=== PATIENT | female | born 1995 ===

== ENCOUNTER 2024-02-12 09:07 | Outpatient (CLI) | payer OTHER | END 2024-02-12 09:10 | disposition home or self-care (01) | LOC: PRENATAL 09:07 | PROVIDERS: ATTEND Obstetrics & Gynecology Maternal & Fetal Medicine | DX: O44.00 Complete placenta previa NOS or without hemorrhage, unspecified trimester (principal); O28.1 Abnormal biochemical finding on antenatal screening of mother; O34.10 Maternal care for benign tumor of corpus uteri, unspecified trimester; Z3A.18 18 weeks gestation of pregnancy ==

== ENCOUNTER 2024-05-20 08:49 | Outpatient (CLI) | payer OTHER | END 2024-05-20 08:50 | disposition home or self-care (01) | LOC: PRENATAL 08:49 | PROVIDERS: ATTEND Obstetrics & Gynecology Maternal & Fetal Medicine | DX: O26.849 Uterine size-date discrepancy, unspecified trimester (principal); O36.8199 Decreased fetal movements, unspecified trimester, other fetus; O28.1 Abnormal biochemical finding on antenatal screening of mother; O34.10 Maternal care for benign tumor of corpus uteri, unspecified trimester; Z3A.32 32 weeks gestation of pregnancy ==